=== PATIENT | male | born 1985 | race African-American/Black ===

== ENCOUNTER 2018-11-24 08:45 | Emergency (ER) | payer OTHER ==
[~2018-11-24] VITALS: Ht 170.2 cm; Wt 86.2 kg
[2018-11-24 11:06] VITALS: BP 132/91
== END 2018-11-24 10:53 | disposition home or self-care (01) ==
LOC: ER 08:45
DX: S51.811A Laceration without foreign body of right forearm, initial encounter (principal); W26.8XXA Contact with other sharp object(s), not elsewhere classified, initial encounter; Y92.89 Other specified places as the place of occurrence of the external cause; Y93.89 Activity, other specified; Y99.8 Other external cause status